=== PATIENT | male | born 1985 | race Caucasian/White ===

== ENCOUNTER 2017-08-12 06:20 | Day surgery (SDC) | payer OTHER ==
[~2017-08-12 06:20] MED LIST: Buffered Lidocaine 0.9% SYRIN* 5 ML/SYR SYRINGE INTRADERM ONE; Sodium Citrate/Citric Acid* 15 ML UDC PO ONE
[2017-08-12] MEDS ORDERED: ceFAZolin 2 GM in 100 MLS NS (*) BAG IVPB ONE (06:55)
[2017-08-12] MEDS ORDERED: Sodium Citrate/Citric Acid* 15 ML UDC ONE (06:55)
[2017-08-12] MEDS ORDERED: Buffered Lidocaine 0.9% SYRIN* 5 ML/SYR SYRINGE ONE (06:55)
[2017-08-12] MEDS ORDERED: Bupivacaine 0.5% SDV PF* 10-30ML VIAL ONE (07:07)
[2017-08-12] MEDS ORDERED: Lidocaine 2% PF* 10 ML AMP ONE ×2 (07:08→07:12)
[2017-08-12] MEDS ORDERED: fentaNYL* 50 MCG/ML 2 ML VIAL (100 MCG VIAL) ONE ×2 (07:22→10:11)
[2017-08-12] MEDS ORDERED: Midazolam* 1 MG/ML 2 ML VIAL (2 MG) ONE (07:22)
[2017-08-12] MEDS ORDERED: Propofol* 10 MG/ML 20 ML BTL IV PUSH ONE (07:23)
[2017-08-12] MEDS ORDERED: Lidocaine 2% PF * 5 ML VIAL ONE (07:23)
[2017-08-12] MEDS ORDERED: Ondansetron INJ* 2 MG/ML VIAL IV PRN (08:03)
[2017-08-12] MEDS ORDERED: Naloxone* 0.4 MG/ML 1 ML VIAL IV PRN (08:03)
[2017-08-12] MEDS ORDERED: Ketorolac INJ* 30 MG/ML 1 ML VIAL IV PRN (08:03)
[2017-08-12] MEDS ORDERED: Ketorolac INJ* 30 MG/ML 1 ML VIAL ONE (10:11)
[2017-08-12] MEDS: fentaNYL* 50 MCG/ML 2 ML VIAL (100 MCG VIAL) IV PRN ×2 (10:12→10:27)
[2017-08-12] MEDS ORDERED: oxyCODONE/Acetamin 5/325 MG* TAB ONE (10:44)
[2017-08-12] MEDS ORDERED: Ondansetron INJ* 2 MG/ML VIAL ONE (10:47)
[2017-08-12 11:49] VITALS: BP 112/77
--- NOTE | 2017-08-13 23:26 | OP ---
DATE OF OPERATION: 08/12/17 - [facility] DATE OF : 85 SURGEON: Jose Manuel Sandoval MD BONE COOKING OPERATOR: TIERA Jones. A physician casting assistant was present for the length of the procedure for assistance with set up, retraction, and closure. ANESTHESIOLOGIST: Quang Kim DO ANESTHESIA: LMA general anesthesia. PRE-OP DIAGNOSES: 1. Mass, superficial, subcutaneous, right elbow area. 2. 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 POST-OP DIAGNOSES: 1. Mass, deep, subfascial, right elbow area. 2. Neuroma versus ganglion cyst about the right elbow. OPERATIVE PROCEDURE: Excision of mass or tumor, elbow area, deep, subfascial. 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 The patient had significant sensitivity to touch when the mass would be bumped. This would happen during sports such as while playing basketball and forced the patient to wear a neoprene sleeve. The bump that he noted about the postero- lateral elbow became more and more sensitive over time. It was such that even the water pressure of a shower would cause significant pain if it hit the elbow in the right way. The patient described pain radiating proximal and distal from the lesion, sharp. In 2014, the patient sought medical attention at [facility]. The patient was diagnosed with a right elbow lateral epicondylitis. Cortisone injection was performed. No MRI was performed, but the patient then subsequently underwent a lateral epicondylitis surgery. The patient was not told of any suture anchors, so I assume this was just an open debridement procedure. While the recovery from the surgery was quick, the patient's pain and sensitivity returned and he is continued to be bothered by it. The patient saw my colleague, Dr. Jones, who ordered an MRI and ultrasound. The history appeared to favor a diagnosis of neuroma. Dr. Jones injected cortisone and Marcaine about the periphery of the lesion. That injection reduced the pain for approximately 1 hour as well as making some surrounding tissue numb, but the pain recurred with full force. I noted on exam that the patient had a bump, approximately 1 x 1 cm in size, between the lateral epicondyle and supracondylar ridge. Tenderness to palpation with radiating pain proximally and distally. Sensation fully intact. Lateral epicondylitis provocative testing negative. MRI from 07/05/17 demonstrated the lesion to be rather superficial about the lateral elbow. As I reviewed the MRI postoperatively, it is clear to me that the lesion is soft, subfascial, deep to the subcutaneous tissue in retrospect, on the axillary slices. The patient opted for surgical management. Discussed risks and potential complications of surgery including, most importantly, that should a neuroma be excised and the proximal end of the nerve placed into a nearby muscle, the patient would lose sensation in the distal distribution of that nerve such as in the case of the posterior antebrachial cutaneous nerve, the dorsal aspect of the proximal forearm. The patient accepted that. I also discussed possible recurrence of neuroma, some continued phantom pain, bleeding, infection. The patient opted for surgery. ANTIBIOTICS: Ancef 2 g IV. IV FLUIDS: 700 cc crystalloid. TOURNIQUET TIME: Approximately 108 minutes at 250 mmHg. SPECIMEN: One mass, removed from right elbow area, subfascial, spherical or slightly elongated spherical in shape with some surrounding tissue. IMPLANTS: None. ESTIMATED BLOOD LOSS: Minimal. COMPLICATIONS: None. DESCRIPTION OF PROCEDURE: The patient signed preoperative, operative consent in preoperative holding. Operative extremity was marked in preoperative holding. Also, on preoperative holding, I took a skin marker and circled the bump that I was able to palpate. The patient was brought to the operating room and kept on the stretcher. Arm table was placed. The patient was sedated and LMA was placed, general anesthesia. A tourniquet was placed about the right upper arm. ChloraPrep was used to prep the upper extremity. Draping. Surgical time-out. Esmarch applied and tourniquet elevated to 250 mmHg. I located the prior surgical incision scar from the patient's prior lateral epicondylitis surgery. I incorporated the proximal aspect of that surgical incision scar into my new incision that would trace that prior scar and, moving proximally, across the area that had been circled with a marker and also moved proximally up the upper arm adjacent to the path of the posterior antebrachial cutaneous nerve. Skin was incised with a knife. A blade was switched and subcutaneous tissue was incised with a knife and then with a scissors spreading dissection. I looked first for the mass about the elbow. It was not immediately encountered visually or by palpation. Based on the MRI preoperatively, I knew I was looking for a 5 x 4 x 3 mm nodule, the measurements made preoperatively. Somewhat surprised about not finding it in the subcutaneous tissue. I then attempted to find it by tracing the posterior antebrachial cutaneous nerve from proximal to distal. I extended the incision proximally. I found the posterior antebrachial cutaneous nerve, exiting fascia, approximately 6 cm proximal to the lateral epicondyle, as anatomic studies predict. I followed this nerve distally. There was copious branching and I found no clear neuroma about the elbow. Distally, the branches seemed to go more anterior than this bump had been located. I next felt more about the elbow. I encountered the bump, just posterior to the lateral epicondyle. It was clearly deep to the fascia. I made a longitudinal incision through the fascia just posterior to the line of the supraclavicular ridge and then lateral epicondyle, posterior aspect. After incising the fascia, the bump was clearly visible. It appeared smooth. I carefully dissected around the mass in all directions, anterior, posterior, superficial, distal. I wanted to avoid any puncture of the mass or at least of its contents if it were a ganglion cyst. I successfully dissected around the mass in all directions and removed it from the arm. I took some photographs with my phone, sterilely as well as an operating room camera. I then dissected this out further on a back table, removing some soft tissue. There was a clear , slightly ovoid, spherical shape to it. No release of contents. There was 1 stalk of tissue connected to it seemingly. The pathologist was called and asked regarding the preferred state of the tissue to be sent in. The request was made to store it in formalin and send it to the pathology lab and this was done. Returning to the wound, there was no clear nerve present about the site of this lesion. It was about the posterior aspect of the lateral epicondyle and supracondylar ridge, deep to fascia and adjacent to triceps and posterior to the distal humerus, within the vicinity of the elbow joint. I figured that this was most likely a neuroma of an unnamed branching nerve to the joint or a ganglion cyst. There were no features of it that concerned me for malignancy. It was small size, especially after being present for 9 years. There was pain, only when touched whether it be by glove turner or by water in the shower, its lack of infiltration in to surrounding soft tissue and bony elements. In case the lesion represented a ganglion, I wanted to make sure to fulgurate any stalk, not visible, that would lead to the joint. Therefore, I used the bipolar to cauterize some adjacent soft tissue in the direction of the joint. No capsule was visible. Tourniquet was dropped. There were no bleeders. Just some oozing from some multiple locations, controlled with bipolar electrocautery. This was not surprising as I dissected out a fair number of small superficial nerves that had veins running with them. Irrigation. Closure of the fascia was performed with figure-of-8 using Vicryl 2-0 suture. Then closure of the subcutaneous layer of tissue was closed with buried simple stitches using Vicryl 3-0 suture. Then, closure of the subcuticular layer was closed with a running stitch using Monocryl 4-0 suture. Mastisol, Steri-Strips , 4x4s, sterile Webril, Coban. The patient was placed in a simple sling. The patient was awakened, LMA was removed, and the patient was transferred to the PACU. Postoperatively, the patient was given [place] as needed for pain control. The patient will follow up with me 7 to 10 days postoperatively in clinic. We will wait on the pathology report. [id number]/[facility] #: [id number] [facility] CENTERGisele
== END 2017-08-12 11:48 | disposition home or self-care (01) ==
LOC: OR 06:20
PROVIDERS: ATTEND Orthopaedic Surgery
DX: D36.12 Benign neoplasm of peripheral nerves and autonomic nervous system, upper limb, including shoulder (principal)
CPT/HCPCS: 88304; A9270-GY; J1885; J2001; J2250; J2405; J2704; J3010